=== PATIENT | male | born 1985 | race Caucasian/White ===

== ENCOUNTER 2017-07-22 10:22 | Inpatient (IN) | payer BC ==
[~2017-07-22] VITALS: Ht 177.8 cm; Wt 60.5 kg
[2017-07-22 11:08] LABS: BILIRUBIN TOTAL 0.65 mg/dL (0.20-1.00); CALCIUM 8.2 mg/dL (8.5-10.1); CARBON DIOXIDE 25.7 mmol/L (21-32)
[2017-07-22 11:11] LABS: ALBUMIN 5.1 g/dL (3.4-5.0); TOTAL PROTEIN, SERUM 10.9 g/dL (6.4-8.2)
[2017-07-22 11:15] LABS: CREATININE SERUM 11.8 mg/dL (0.7-1.3)
[2017-07-22 11:34] LABS: PLATELET COUNT 444 x10^3mcL (130-400)
[2017-07-22 11:38] LABS: BAND NEUTROPHIL 0 % (0-10); BASOPHIL 0 % (0-2); MONOCYTE 4 % (0-7); SEGMENTED NEUTROPHILS 94 % (37-75)
[2017-07-22 11:40] LABS: PLATELET MORPHOLOGY PLATELETS INCREASED; rbc morphology (normal/abnorm) ABNORMAL (NORMAL)
[2017-07-22] MEDS ORDERED: OTEZLA30 MG PO (11:46)
[2017-07-22 11:58] LABS: POTASSIUM SERUM 6.2 mmol/L (3.5-5.1)
[2017-07-22 11:59] LABS: CREATININE SERUM 11.1 mg/dL (0.7-1.3)
[2017-07-22 12:29] LABS: FREE T4 1.13 ng/dL (0.76-1.46); FREE THYROXINE INDEX 3.6 ug/dL (1.4-4.5)
[2017-07-22 12:32] LABS: T3 TOTAL 0.78 ng/mL
[2017-07-22 13:20] LABS: CHOLESTEROL/HDL RATIO 5.7
[2017-07-22 13:36] LABS: PHOSPHOROUS 15.5 mg/dL (2.5-4.9)
[2017-07-22 13:37] LABS: MAGNESIUM 4.2 mg/dL (1.8-2.4)
[2017-07-22 14:06] VITALS: BP 140/86
[2017-07-22 17:34] LABS: PLATELET COUNT 328 x10^3mcL (130-400); RED CELL DISTRIBUTION WIDTH 12.8 % (11.5-14.5)
[2017-07-22 17:51] LABS: BAND NEUTROPHIL 0 % (0-10); BASOPHIL 0 % (0-2); MONOCYTE 5 % (0-7); PLATELET MORPHOLOGY PLATELETS NORMAL; SEGMENTED NEUTROPHILS 93 % (37-75); rbc morphology (normal/abnorm) NORMAL (NORMAL)
[2017-07-22 17:58] LABS: CARBON DIOXIDE 24.7 mmol/L (21-32); MAGNESIUM 3.2 mg/dL (1.8-2.4)
[2017-07-22 18:02] LABS: CREATININE SERUM 10.9 mg/dL (0.7-1.3)
[2017-07-22 19:26] VITALS: BP 110/63
[2017-07-22 23:06] VITALS: BP 128/67
[2017-07-23 04:00] VITALS: BP 140/78
[2017-07-23 04:59] LABS: PLATELET COUNT 245 x10^3mcL (130-400); RED CELL DISTRIBUTION WIDTH 12.7 % (11.5-14.5)
[2017-07-23 05:12] LABS: BASOPHIL % 0 % (0-2)
[2017-07-23 05:13] LABS: MAGNESIUM 2.9 mg/dL (1.8-2.4); URIC ACID 13.3 mg/dL (3.5-7.2)
[2017-07-23 05:23] LABS: CALCIUM 6.1 mg/dL (8.5-10.1); CARBON DIOXIDE 24.1 mmol/L (21-32); POTASSIUM SERUM 4.2 mmol/L (3.5-5.1)
[2017-07-23 05:25] LABS: CREATININE SERUM 11.2 mg/dL (0.7-1.3)
[2017-07-23 06:09] LABS: PHOSPHOROUS 10.3 mg/dL (2.5-4.9)
[2017-07-23 07:28] LABS: UA SPECIFIC GRAVITY >=1.030 (1.005-1.035); microscopic required? YES; urine erythrocyte 3+ (NEGATIVE)
[2017-07-23 07:45] VITALS: BP 149/60
[2017-07-23 08:06] LABS: AMPHETAMINE QUAL UR NONE DETECTED (NEG <=1000)
[2017-07-23 11:05] VITALS: BP 119/68
[2017-07-23 14:47] LABS: CREATININE UR 73.2 mg/dL
[2017-07-23 16:20] VITALS: BP 145/80
[2017-07-23 19:32] VITALS: BP 119/57
[2017-07-23 21:42] LABS: MAGNESIUM 2.4 mg/dL (1.8-2.4); PHOSPHOROUS 6.7 mg/dL (2.5-4.9)
[2017-07-23 23:20] VITALS: BP 142/65
[2017-07-24 03:07] VITALS: BP 131/59
[2017-07-24 04:57] LABS: PLATELET COUNT 169 x10^3mcL (130-400); RED CELL DISTRIBUTION WIDTH 12.8 % (11.5-14.5)
[2017-07-24 04:58] LABS: BASOPHIL % 0 % (0-2)
[2017-07-24 05:44] LABS: CALCIUM 6.5 mg/dL (8.5-10.1); CARBON DIOXIDE 26.6 mmol/L (21-32); MAGNESIUM 2.4 mg/dL (1.8-2.4); PHOSPHOROUS 7.1 mg/dL (2.5-4.9); POTASSIUM SERUM 3.9 mmol/L (3.5-5.1)
[2017-07-24 05:47] LABS: CREATININE SERUM 9.9 mg/dL (0.7-1.3)
[2017-07-24 08:00] VITALS: BP 143/55
[2017-07-24 12:37] VITALS: BP 145/85
[2017-07-24 17:05] VITALS: BP 145/85
[2017-07-24 18:29] VITALS: BP 139/84
[2017-07-24 21:49] VITALS: BP 132/75
[2017-07-25 05:41] VITALS: BP 153/86
[2017-07-25 06:29] LABS: PLATELET COUNT 149 x10^3mcL (130-400); RED CELL DISTRIBUTION WIDTH 12.9 % (11.5-14.5)
[2017-07-25 06:39] LABS: CALCIUM 7.4 mg/dL (8.5-10.1); CARBON DIOXIDE 26.9 mmol/L (21-32); PHOSPHOROUS 5.4 mg/dL (2.5-4.9); POTASSIUM SERUM 3.1 mmol/L (3.5-5.1)
[2017-07-25 06:42] LABS: BASOPHIL % 0 % (0-2)
[2017-07-25 09:20] VITALS: BP 140/89
[2017-07-25 13:03] VITALS: BP 149/83
[2017-07-25 17:41] VITALS: BP 151/89
[2017-07-25 20:33] VITALS: BP 153/84
[2017-07-26 05:44] VITALS: BP 157/83
[2017-07-26 06:00] LABS: BASOPHIL % 0.1 % (0-2); PLATELET COUNT 180 x10^3mcL (130-400); RED CELL DISTRIBUTION WIDTH 12.4 % (11.5-14.5)
[2017-07-26 06:40] LABS: CALCIUM 7.9 mg/dL (8.5-10.1); CARBON DIOXIDE 25.9 mmol/L (21-32); POTASSIUM SERUM 3.4 mmol/L (3.5-5.1)
[2017-07-26 08:30] VITALS: BP 132/78
[2017-07-26 09:58] VITALS: Ht 177.8 cm; Wt 60.5 kg
[2017-07-26 13:49] VITALS: BP 142/88
[2017-07-26 17:15] VITALS: BP 164/84
[2017-07-26 21:21] VITALS: BP 157/85
[2017-07-27 05:26] VITALS: BP 161/86
[2017-07-27 06:22] LABS: BASOPHIL % 0.1 % (0-2); PLATELET COUNT 197 x10^3mcL (130-400); RED CELL DISTRIBUTION WIDTH 12.4 % (11.5-14.5)
[2017-07-27 06:29] LABS: CALCIUM 8.4 mg/dL (8.5-10.1); CARBON DIOXIDE 30.9 mmol/L (21-32); PHOSPHOROUS 4.2 mg/dL (2.5-4.9); POTASSIUM SERUM 3.1 mmol/L (3.5-5.1)
[2017-07-27 06:32] LABS: CREATININE SERUM 6.4 mg/dL (0.7-1.3)
[2017-07-27 08:15] VITALS: BP 155/85
[2017-07-27 12:50] VITALS: BP 148/86
[2017-07-27 15:14] VITALS: BP 148/86
[2017-07-27] MEDS ORDERED: NOR5 PO (15:15)
[2017-07-27] MEDS ORDERED: K10 PO (15:31)
[2017-07-27 16:11] VITALS: BP 132/87
[2017-07-29 05:32] LABS: CK-BB 0 % (0); CK-MB 0 % (0-3); CK-MM 100 % (97-100); MACRO TYPE 1 0 % (Not Observed); MACRO TYPE 2 0 % (Not Observed)
== END 2017-07-27 18:30 | disposition home or self-care (01) | DRG 199 ==
LOC: ED 10:22 → DU 11:45 → IC 11:45 → DU 07-24 15:48 → MU 07-26 17:46
PROVIDERS: Emergency Medicine; Internal Medicine; Internal Medicine Gastroenterology; Internal Medicine Nephrology; Student in an Organized Health Care Education/Training Program; ADMIT Family Medicine Sports Medicine
PROC: 02HV33Z Insertion of Infusion Device into Superior Vena Cava, Percutaneous Approach (ICD-10-PCS; principal; 2017-07-22)
PROC: B548ZZA Ultrasonography of Superior Vena Cava, Guidance (ICD-10-PCS; 2017-07-22)
PROC: 02PYX3Z Removal of Infusion Device from Great Vessel, External Approach (ICD-10-PCS; 2017-07-27)
PROC: 02HV33Z Insertion of Infusion Device into Superior Vena Cava, Percutaneous Approach (ICD-10-PCS; 2017-07-27)
PROC: B5181ZA Fluoroscopy of Superior Vena Cava using Low Osmolar Contrast, Guidance (ICD-10-PCS; 2017-07-27)
DX: J98.2 Interstitial emphysema (principal); N17.0 Acute kidney failure with tubular necrosis; I21.4 Non-ST elevation (NSTEMI) myocardial infarction; N39.0 Urinary tract infection, site not specified; Z68.1 Body mass index [BMI] 19.9 or less, adult; K92.0 Hematemesis; E87.1 Hypo-osmolality and hyponatremia; E86.0 Dehydration; F12.10 Cannabis abuse, uncomplicated; R74.0 Nonspecific elevation of levels of transaminase and lactic acid dehydrogenase [LDH]; E87.5 Hyperkalemia; D75.1 Secondary polycythemia; L40.9 Psoriasis, unspecified; D64.9 Anemia, unspecified; F17.210 Nicotine dependence, cigarettes, uncomplicated
CPT/HCPCS: 76770; 82962; 83880; 84439; 86580; 94150; A4301; C9113; J0696; J1642; J1644; J1815; J1885; J1940; J2001; J2060; J2405; J2543; J2765; J3010; J3490; J7030; J7042; J7050; J7613; Q0092; Q0162